=== PATIENT | male | born 1935 | race Caucasian/White ===

== ENCOUNTER → 2023-06-13 16:22 | Outpatient (REF) | payer OTHER, SELFPAY | LOC: RAD 16:22 | PROVIDERS: ATTENDING PHYSICIAN Family Medicine Geriatric Medicine; FAMILY PHYSICIAN Registered Nurse | DX: M54.50 Low back pain, unspecified (principal) | CPT/HCPCS: 72131 ==

== ENCOUNTER 2023-12-31 11:28 | Emergency (ER) | payer OTHER, SELFPAY ==
[2023-12-31 11:31] VITALS: BP 155/80
[2023-12-31 12:31] VITALS: BP 157/71; BMI 35.2
--- NOTE | 2023-12-31 12:31 | ED.GENMED ---
History of Present Illness
General
Chief Complaint: Musculo-Skeletal Complaint
Time Seen by Provider: 12/31/23 12:17
History of Present Illness
History of Present Illness:
88-year-old male with history of A-fib, CHF, hypertension, and coronary artery disease status post CABG in 2007 presents to the emergency department for evaluation of right elbow pain and swelling for the past 3 days. States that he has had small
amount of swelling to the right olecranon bursa for several weeks and this was monitored by his primary care physician. Over the past 2 to 3 days became increasingly red, hot, and swollen. Saw his doctor this morning who sent him to the ER for
evaluation. Denies any fevers chills or sweats
Past History
Past History
ED Past Medical History: Arrthythmia, CHF and Hypercholesterolemia
ED Past Surgical History: Appendectomy and Cardiac
Social History
Personal:
Living: with family
Review of Systems
Review of Systems
Allergies reviewed?: Yes
All Other Systems: ROS reviewed and negative except as documented in HPI and ROS
Phy Exam
Physical Exam
Physical Exam:
GEN: Well appearing, NAD, WDWN
HEENT: Oral mucosa moist, no scleral icterus
Cardiac: Regular rate
Lung: No respiratory distress, no tachypnea
MSK: Moderate erythema of the posterior right elbow extending to the lateral aspects with moderate swelling of the olecranon bursa, no axillary adenopathy. No significant pain with passive range of motion, no joint effusion
Skin: Good color, no pallor or jaundice, no rashes
Neuro: AO x3, moves all extremities freely
Psych: Calm, cooperative
Sepsis
Sepsis Screening
Sepsis Assessment: Sepsis Ruled Out
Sepsis Screen
Sepsis Screen: Sepsis Ruled Out
Date: 12/31/23
Time: 19:09
Course
Orders/Labs/Results
Orders:
Orders
12/31/23 12:50
Complete Blood Count/With Diff Urgent
Comprehensive Metabolic Panel Urgent
12/31/23 14:16
Vancomycin [Vancocin] 2,000 mg 0.9% Sodium Chloride 500 ml [Nss] 500 ml IV NOW
Abnormal Lab Results
12/31/23
12:50
WBC 10.9 H 10^3/uL
(4.8-10.8)
RBC 4.14 L 10^6/uL
(4.70-6.10)
Hgb 12.8 L g/dL
(13.0-18.0)
Hct 37.8 L %
(39.0-52.0)
MPV 11.0 H fL
(7.4-10.4)
Abs Immat Gran (auto) 0.1 H 10^3/uL
(0-0.05)
Absolute Neuts (auto) 7.9 H 10^3/uL
(1.4-6.5)
Absolute Monos (auto) 1.3 H 10^3/uL
(0.1-0.6)
Immature Gran % 0.6 H %
(0-0.5)
Lymphocytes % 13.6 L %
(20.5-51.1)
Monocytes % 12.2 H %
(1.7-9.3)
BUN 40 H mg/dl
(9-20)
Creatinine 2.4 H mg/dL
(0.7-1.3)
Glucose 103 H mg/dl
(70-99)
12/31/23 12:50
12/31/23 12:50
Vital Signs
Initial and Last Documented VS:
Initial Vital Signs
Temp Pulse Resp BP Pulse Ox
98.3 F 90 16 155/80 98
12/31/23 11:31 12/31/23 11:31 12/31/23 11:31 12/31/23 11:31 12/31/23 11:31
Last Documented Vital Signs
Temp Pulse Resp BP Pulse Ox
98.5 F 68 20 156/68 97
12/31/23 12:31 12/31/23 12:31 12/31/23 12:31 12/31/23 16:00 12/31/23 16:45
MDM/Problems Addressed
MDM/Problems Addressed:
88-year-old male with septic bursitis, he would prefer discharge to home which is not unreasonable given that he has not been on any antibiotics at this point and is afebrile. Initial dose of IV vancomycin given in the ED and will discharge on
Bactrim, strict ED return parameters discussed
*Critical Care Note
Total Time (30-74mins, 75-104mins- exclusive of procedures): Not Applicable
ED Attending Note
-
Portions of this chart may have been created with voice recognition software.� Occasional wrong word or��sound alike� substitutions may have occurred due to the inherent limitations of voice recognition software.
Discharge Plan
Departure
Patient Disposition: Home (Routine Discharge)
Date of Disposition: 12/31/23
Time of Disposition: 14:31
Patient with high blood pressure during this ER visit?: No
Discharge Problem:
Septic olecranon bursitis of right elbow
Instructions: Bursitis ED
Prescriptions:
New
sulfamethoxazole-trimethoprim [Bactrim DS] 800-160 mg tablet
1 tab PO Q12H Qty: 14 0RF
No Action
simvastatin 40 MG tablet
40 mg PO QPM
metoprolol tartrate 12.5 MG tablet
12.5 mg PO BID
Eliquis 2.5 mg Tablet
2.5 mg PO BID
Referrals:
Zachary Azul CRNP [Family Provider] -
Activity Restrictions/Additional Instructions:
Ice the elbow
Keep elevated
Return to the ER if symptoms are not better in 3 days
Interventions
Interventions:
*Risk Screen - Suicide Last Done: 12/31/23 11:31
*General Assessment Last Done: 12/31/23 12:31
*Neglect/Abuse Screening Last Done: 12/31/23 11:31
ED- Fall Risk Assessment Last Done: 12/31/23 12:31
*ED COVID-19 Vaccine History Last Done: 12/31/23 12:31
*Nursing Disposition Last Done: 12/31/23 17:57
ED-Musculoskeletal Assessment Last Done: 12/31/23 12:31
Discharge Date and Time
Discharge Date/Time: 12/31/23 17:00
Print Language: SUDANESE
[2023-12-31 13:00] VITALS: BP 142/68
[2023-12-31 13:04] LABS: % Basophils 0.3 % (0-2); % Eosinophils 0.8 % (0-6); % Immature Granulocytes 0.6 % (0-0.5); % Lymphocytes 13.6 % (20.5-51.1); % Monocytes 12.2 % (1.7-9.3); % Neutrophils 72.5 % (42.2-75.2); Absolute Eosinophils 0.1 10^3/uL (0-0.7); Absolute Immature Granulocytes 0.1 10^3/uL (0-0.05); Absolute Lymphocytes 1.5 10^3/uL (1.2-3.4); Absolute Monocytes 1.3 10^3/uL (0.1-0.6); Absolute Neutrophils 7.9 10^3/uL (1.4-6.5); Hematocrit 37.8 % (39.0-52.0); Hemoglobin 12.8 g/dL (13.0-18.0); Mean Corp Hgb Conc. 33.9 g/dL (33.0-37.0); Mean Corpuscular Hgb 30.9 pg (27.0-31.0); Mean Corpuscular Volume 91.3 fL (80.0-94.0); Nucleated Red Blood Cells % 0 % (-); Platelet Count 150 10^3/uL (130-400); Red Blood Cell Count 4.14 10^6/uL (4.70-6.10); Red Cell Dist. Width 13.6 % (11.5-14.5); White Blood Cell Count 10.9 10^3/uL (4.8-10.8)
[2023-12-31 13:12] LABS: ALT (SGPT) 24 U/L (0-50); AST (SGOT) 28 U/L (17-59); Alkaline Phosphatase 83 U/L (38-126); Blood Urea Nitrogen 40 mg/dl (9-20); Calcium 9.3 mg/dl (8.4-10.2); Carbon Dioxide 22 mmol/L (22-30); Chloride 100 mmol/L (98-107); Estimated Creatinine Clearance 22 ml/min; Glucose 103 mg/dl (70-99); Sodium 137 mmol/L (135-145); Total Bilirubin 0.9 mg/dl (0.2-1.3); Total Protein 6.7 g/dl (6.3-8.2); eGFR 25.48
[2023-12-31 14:00] VITALS: BP 149/70
[2023-12-31] MEDS: VANCOCIN 540 MG IV (14:29)
[2023-12-31 15:00] VITALS: BP 152/73
[2023-12-31 16:00] VITALS: BP 156/68
== END 2023-12-31 17:00 | disposition home or self-care (01) ==
LOC: EMR 11:28
PROVIDERS: Physician Assistant; EMERGENCY PHYSICIAN Emergency Medicine; FAMILY PHYSICIAN Registered Nurse
DX: M70.21 Olecranon bursitis, right elbow (principal); L53.9 Erythematous condition, unspecified; I48.91 Unspecified atrial fibrillation; I11.0 Hypertensive heart disease with heart failure; I50.9 Heart failure, unspecified; I25.10 Atherosclerotic heart disease of native coronary artery without angina pectoris; E78.00 Pure hypercholesterolemia, unspecified; Z95.1 Presence of aortocoronary bypass graft; Z79.01 Long term (current) use of anticoagulants
CPT/HCPCS: 99284; 96365; 96366; 80053; 85025

== ENCOUNTER → 2024-01-02 18:31 | Emergency (ER) | payer OTHER, SELFPAY ==
[2024-01-02 18:36] VITALS: BP 149/74
--- NOTE | 2024-01-02 18:48 | ED.GENMED ---
History of Present Illness
General
Chief Complaint: Swelling
Source: patient
Exam Limitations: none
Time Seen by Provider: 01/02/24 18:39
History of Present Illness
History of Present Illness:
This is a 88 year old male that comes in with c/o slight swelling in the right hand. States that he was here on Tuesday for Bursitis in the right elbow. States that he was given an IV in the right hand and then placed on Bactrim for home. Sates
that the right hand is now swollen and it was more red but the redness has decreased and it is only slightly red around the site. Patient states that he is on Eliquis. Patient states that the redness in the arms is getting better. Denies any fever,
chills, chest pain, SOB, abd pain, nausea, vomiting, diarrhea, headache, dizziness, urinary burning.
Past History
Past History
ED Past Medical History: Arrthythmia (Atrial fib), CHF, Hypercholesterolemia and NM
ED Past Surgical History: Appendectomy and Cardiac (CABG, Defibrillator implant)
Social History
Tobacco: Non-smoker
Alcohol: None
Personal:
Living: with family
Review of Systems
Review of Systems
All Other Systems: ROS reviewed and negative except as documented in HPI and ROS
Constitutional: Reports no symptoms; Denies fever or chills
EENT: Reports no symptoms
Respiratory: Reports no symptoms; Denies cough or trouble breathing
Cardiac: Reports no symptoms; Denies chest pain
ABD/GI: Reports no symptoms; Denies abdominal pain, nausea, vomiting or diarrhea
: Reports no symptoms; Denies dysuria, frequency or urgency
Musculoskeletal: Reports no symptoms
Skin: Reports other (Slight swelling right hand and redness right elbow)
Neurological: Reports no symptoms; Denies dizzy or headache
Psychiatric: Reports no symptoms
Phy Exam
General Physical Exam
General Presentation: well appearing and no apparent distress
General age: appears stated age
General Skin: warm and dry
General Habitus: elderly
General Mental: alert
General Hydration: appears well hydrated
ENT Exam
ENT Exam: pharynx normal and neck supple
Eye Exam
Eye Exam: EOMI
Cardiovascular Exam
Cardiovascular Exam: regular rate/rhythm
Musculoskeletal Exam
Musculoskeletal Exam: full ROM
Skin Exam
Skin Exam: normal color, warm/dry, no petechia and redness (Redness of the right elbow into the forearm with increased warmth. Slight swelling of the right hand, with minimal redness of the hand noted. No increased warmth)
Psychiatric Exam
Psychiatric Exam: normal mood/affect
Scores
Heart Failure Risk
Heart Failure Risk Score: Not Applicable
Course
Vital Signs
Initial and Last Documented VS:
Initial Vital Signs
Temp Pulse Resp BP Pulse Ox
98.3 F 87 16 149/74 98
01/02/24 18:36 01/02/24 18:36 01/02/24 18:36 01/02/24 18:36 01/02/24 18:36
Last Documented Vital Signs
Temp Pulse Resp BP Pulse Ox
98.3 F 87 16 149/74 98
01/02/24 18:36 01/02/24 18:36 01/02/24 18:36 01/02/24 18:36 01/02/24 18:36
MDM/Problems Addressed
Differential Diagnosis Includes:
Cellulitis elbow/forearm.
MDM/Problems Addressed:
This is a 88 year old male that comes in with c/o redness and swelling of the right hand after having an IV on Tuesday. States that he was diagnosed with bursitis of the right elbow and given Bactrim. Patient states that he had an IV here and his
right hand started to swelling and was more red but this redness has decreased.
Explained to patient that he can do warm compresses to the hand for 20min 3-4 times daily and will add Keflex to his Antibiotics. Patient to follow up with the family doctor. Return with any concerns.
Chronic conditions affecting care:
NA
Acute Exacerbation and/or Progression of Chronic Illness:
NA
*Pulse Oximetry
Patient hypoxic: no
*EKG
Interpreted by ED Provider?: NA
Rate: EKG- N/A
*Forestry Supervisor Interpretation
Rate: Forestry Supervisor- N/A
*Critical Care Note
Total Time (30-74mins, 75-104mins- exclusive of procedures): Not Applicable
ED Attending Note
-
Portions of this chart may have been created with voice recognition software.� Occasional wrong word or��sound alike� substitutions may have occurred due to the inherent limitations of voice recognition software.
Discharge Plan
Departure
Patient Disposition: Home (Routine Discharge)
Date of Disposition: 01/02/24
Time of Disposition: 18:57
Patient with high blood pressure during this ER visit?: Yes
Condition: Good
Covid-19: Not Applicable
Discharge Problem:
Cellulitis of arm, right
Instructions: Cellulitis (Skin Infection), Adult ED, BLOOD PRESSURE
Prescriptions:
New
cephalexin 500 mg capsule
500 mg PO BID 7 Days Qty: 14 0RF
No Action
simvastatin 40 MG tablet
40 mg PO QPM
metoprolol tartrate 12.5 MG tablet
12.5 mg PO BID
Eliquis 2.5 mg Tablet
2.5 mg PO BID
sulfamethoxazole-trimethoprim [Bactrim DS] 800-160 mg tablet
1 tab PO Q12H Qty: 14 0RF
Activity Restrictions/Additional Instructions:
As discussed, please keep your arm elevated to help decrease any swelling. You have also been given a second antibiotic to help decrease any infection in the right arm. Continue with the Bactrim that you are taking. Follow up with the family doctor
for recheck. You may also do warm compresses to the right hand for 20 min 3-4 times daily. IF YOU HAVE ANY FEVER, INCREASED REDNESS OR YOU HAVE ANY OTHER CONCERNS PLEASE RETURN TO THE EMERGENCY ROOM.
Interventions
Interventions:
*Risk Screen - Suicide Last Done: 01/02/24 18:36
*Neglect/Abuse Screening Last Done: 01/02/24 18:36
Discharge Date and Time
Print Language: CROATIAN
[2024-01-02] MEDS: KEFLEX 500 MG PO (19:18)
== END | disposition home or self-care (01) ==
LOC: EMR 18:31
PROVIDERS: EMERGENCY PHYSICIAN Emergency Medicine; FAMILY PHYSICIAN Registered Nurse
DX: L03.113 Cellulitis of right upper limb (principal); M70.31 Other bursitis of elbow, right elbow; R03.0 Elevated blood-pressure reading, without diagnosis of hypertension; I48.91 Unspecified atrial fibrillation; I50.9 Heart failure, unspecified; E78.00 Pure hypercholesterolemia, unspecified; I25.2 Old myocardial infarction; Z95.1 Presence of aortocoronary bypass graft; Z95.810 Presence of automatic (implantable) cardiac defibrillator; Z79.01 Long term (current) use of anticoagulants
CPT/HCPCS: 99283